=== PATIENT | male | born 1985 | race Caucasian/White ===

== ENCOUNTER → 2020-10-13 16:29 | Outpatient (BNVA) | payer MEDICAID, SELFPAY | PROVIDERS: Visit Provider Nurse Practitioner Family | DX: R11.10 Vomiting, unspecified (principal); H66.001 Acute suppurative otitis media without spontaneous rupture of ear drum, right ear; K21.9 Gastro-esophageal reflux disease without esophagitis | CPT/HCPCS: 80053; 85025 ==